=== PATIENT | female | born 1960 | race Caucasian/White ===

== ENCOUNTER 2018-01-29 07:25 | Day surgery (SDC) | payer OTHER ==
[2018-01-29] MEDS ORDERED: LIDOCAINE HCL 1% MPF 30 SOL ONE (07:58)
[2018-01-29] MEDS ORDERED: PROPOFOL 500 MG/50 ML EMU IV ONE (07:58)
[2018-01-29] MEDS ORDERED: GLYCOPYRROLATE 0.2 MG/ML SOL ONE (09:03)
[2018-01-29 09:55] VITALS: BP 143/83; PULSE 63; RESP 20; TEMP 97.7; O2SAT 99
== END 2018-01-29 10:10 | disposition home or self-care (01) | DRG 951 ==
LOC: SURG 07:25
PROVIDERS: ATTEND Internal Medicine Gastroenterology
DX: Z12.11 Encounter for screening for malignant neoplasm of colon (principal); K57.32 Diverticulitis of large intestine without perforation or abscess without bleeding; Z86.010 Personal history of colon polyps; K64.8 Other hemorrhoids
CPT/HCPCS: J7643; J2001; J2704